=== PATIENT | female | born 1995 | race African-American/Black ===

== ENCOUNTER 2021-01-04 08:12 | Emergency (ER) | payer SELFPAY ==
[~2021-01-04] VITALS: Ht 167.6 cm; Wt 90.9 kg
[2021-01-04 08:25] VITALS: BP 157/116
[2021-01-04 09:07] VITALS: PULSE 98; TEMP 98.1
== END 2021-01-04 09:07 | disposition home or self-care (01) ==
LOC: COL.ER 08:12
DX: R22.0 Localized swelling, mass and lump, head (principal); K02.9 Dental caries, unspecified
CPT/HCPCS: J0561; J1885